=== PATIENT | female | born 1990 ===

== ENCOUNTER 2019-06-29 10:29 | Emergency (ER) | payer OTHER ==
[~2019-06-29] VITALS: Ht 157.5 cm; Wt 99.8 kg
[2019-06-29] MEDS ORDERED: OSEL75CA PO (16:17)
[2019-06-29] MEDS ORDERED: TESSALON PERLE100 M1 PO (16:17)
[2019-06-29] MEDS ORDERED: IBU800 MG PO (16:17)
[2019-06-29] MEDS ORDERED: MUCINEX DM ER1 EAC1 PO (16:17)
== END 2019-06-29 16:31 ==
LOC: ER 10:29
DX: J09.X2 Influenza due to identified novel influenza A virus with other respiratory manifestations (principal)